=== PATIENT | female | born 1985 | race Hispanic/Latino ===

== ENCOUNTER 2017-11-27 20:34 | Day surgery (SDC) | payer MEDICAID, SELFPAY ==
[2017-11-27 20:58] VITALS: BP 117/63; TEMP 98.6; BMI 32.9
[2017-11-27 22:04] LABS: Bilirubin Negative (Negative); Blood, Urine Negative (Negative); Clarity CLEAR (Clear); Glucose, Urine (Dipstick) Negative (Negative); Leukocyte Negative (Negative); Nitrite Negative (Negative); Protein, Urine (Dipstick) Negative (Neg-Trace); Specific Gravity, Urine 1.014 (1.002-1.036); Urobilinogen 0.2 mg/dL (0.2-1.0)
[2017-11-27 22:05] LABS: Bacteria/HPF None Seen HPF (None Seen); Hyaline Casts/LPF 0-3 HYALINE CAST LPF (0-3 Hyaline); Pathc Cast-AUWi Flag 0.13 (0-2.49); RBC/HPF 0-3 HPF (0-3); Squamous Epithelial None Seen HPF (0-3); WBC/HPF None Seen HPF (0-3)
--- NOTE | 2017-11-28 00:09 | PRG ---
DATE OF ENCOUNTER: 11/27/2017 OB ER ENCOUNTER CHIEF COMPLAINT: Abdominal back pains. HISTORY OF PRESENT ILLNESS: Patient is a 32-year-old G5, P3 female with an intrauterine at approximately 12 weeks' gestation, who reports that she has been experiencing back pain and cramping and is worried that she may be miscarrying and was to come in for evaluation. Patient does have a p oor history with a 27-week delivery followed by a 34-week delivery and preceded by a term d elivery. She has also had a 19-week miscarriage. Patient denies any vaginal bleeding. She denies a ny change in her discharge. She feels rectal pressure and low back pain. Patient denies any recent illness or fever, fall, headache, chest pain, shortness of breath, significant nausea, vomiting, diar adelina, constipation, any new rashes, hip problems, or knee problems. She does report that she has bee n having more discharge than normal. PAST MEDICAL HISTORY: Noncontributory. PAST SURGICAL HISTORY: Negative. OBSTETRIC HISTORY: She has had 1 term in 2 deliveries, 1 second trimester loss. OB LABORATORY DATA: Unavailable. REVIEW OF SYSTEMS: Per HPI. PHYSICAL EXAMINATION: VITAL SIGNS: Blood pressure 117/63, heart rate of 79, respiratory rate of 18, temperature 98.6. GENERAL: She appears to be in no acute distress. She is alert, oriented, cooperative, and pleasant to interact with. HEENT: Normocephalic, atraumatic. LUNGS: Clear to auscultation bilaterally. HEART: Regular rate and rhythm. ABDOMEN: Soft and nontender. On her back, she has very point tenderness on the left paravertebral s acral region with palpable spasms. These are not present on the patient's right side. GENITOURINARY: Shows no erythema or discharge or swelling of the labia. Vagina is moist. She does have a distinct fishy odor with some minimal discharge. Cervix appears closed with no bleeding. heart Dopplers were in the 160s. LABORATORY STUDIES: Lab work showed negative UA for nitrites, leukocyte esterase, bacteria, and a CARPET CUTTER -3 negative for yeast, Monserrat, or Trichomonas. ASSESSMENT AND PLAN: Patient is a 32-year-old female with an intrauterine at 12 weeks with musculoskeletal pain and no evidence of infection. She has been shown various gentle stretches that the patient can use to help alleviate some spasms in her lower back. Patient has been given reassur ance and has been encouraged to establish care with her OB. Patient intents to see Dr. Brice Obrien.
== END 2017-11-27 23:00 | disposition home or self-care (01) ==
LOC: L&D/OP 20:34
PROVIDERS: ATTEND Family Medicine
DX: O99.89 Other specified diseases and conditions complicating pregnancy, childbirth and the puerperium (principal); R10.9 Unspecified abdominal pain; M54.9 Dorsalgia, unspecified; Z3A.12 12 weeks gestation of pregnancy; Z79.899 Other long term (current) drug therapy; Z87.59 Personal history of other complications of pregnancy, childbirth and the puerperium
CPT/HCPCS: 81001; 87480; 87510; 87660; 99284

== ENCOUNTER 2018-03-28 22:34 | Day surgery (SDC) | payer MEDICAID, OTHER ==
[2018-03-28 23:10] VITALS: BP 111/55; TEMP 98.9; BMI 38.0
[2018-03-29 00:39] LABS: Bilirubin Negative (Negative); Blood, Urine Negative (Negative); Clarity CLEAR (Clear); Glucose, Urine (Dipstick) Negative (Negative); Leukocyte Negative (Negative); Nitrite Negative (Negative); Protein, Urine (Dipstick) Negative (Neg-Trace); Specific Gravity, Urine 1.025 (1.002-1.036); pH, Urine 6.5 (5.0-9.0)
[2018-03-29 00:43] LABS: Bacteria/HPF None Seen HPF (None Seen); Hyaline Casts/LPF 0-3 HYALINE CAST LPF (0-3 Hyaline); Pathc Cast-AUWi Flag 0.29 (0-2.49); RBC/HPF 0-3 HPF (0-3); Squamous Epithelial 0-3 HPF (0-3); WBC/HPF None Seen HPF (0-3)
[2018-03-29 01:21] LABS: FFN Internal QC Analyzer PASS (PASS); FFN Internal QC Cassette PASS (PASS); Fetal Fibronectin Negative (Negative)
--- NOTE | 2018-03-29 07:56 | PRG ---
DATE OF SERVICE: 03/29/2018 PRIMARY OB: Dr. Brice Obrien CHIEF COMPLAINT: Pelvic pressure and abdominal pains. HISTORY OF PRESENT ILLNESS: The patient is a 33-year-old female with an intrauterine at 30 weeks gestation who is presenting with pelvic pressure and uterine contractions or tightening since about 5:00 yesterday. The patient reports she has a history of delivery x2 with delive ry at 27 weeks and 34 weeks. She reports that she has pain, some sharp pains getting out of bed and other movements. She says that she feels some tightening in her belly on random occasions about 2 ti mes per hour, lasting a minute or two and was concerned because she has felt this way prior to delive ring early. The patient is on progesterone supplementation for a history of labor. She sees Dr. Obrien and was last seen about a week ago. She denies any vaginal bleeding or leakage of fluid. She denies any urinary urgency or frequency. She denies any change in discharge. She denies fever, headache, chest pain, unexpected shortness of breath, nausea, vomiting, diarrhea, constipation, new rashes, hip or knee problems, vaginal bleeding, leaking fluid, change in discharge, urinary urgency o r frequency. PAST MEDICAL HISTORY: History of deliveries. SOCIAL HISTORY: Negative. OB LABS: Unavailable at time of dictation. REVIEW OF SYSTEMS: Per HPI. ALLERGIES: No known drug allergies. MEDICATIONS: vitamins and a vaginal progesterone supplementation. PHYSICAL EXAMINATION: VITAL SIGNS: Blood pressure 111/55, heart rate of 92, respiratory rate of 18, temperature 98.7. GENERAL: She appears to be in no acute distress. She is alert and oriented, cooperative and pleasan t to interact with. HEENT: Head is normocephalic, atraumatic. CHEST: Clear to auscultation bilaterally. HEART: Regular rate and rhythm. ABDOMEN: Soft and gravid. EXTREMITIES: Nontender, nonedematous. PELVIC: Vulva is without masses, lesions or erythema. Vagina is moist, with minimal discharge. Cer vix appears closed. A fibronectin and SOCIAL WORK ASSOCIATE-3 were collected as well as a cath UA. Cervical exam, cervix is closed, thick and high. heart tracing performed for abdominal pain in at 30 weeks gestation. Baseline is not ed to be in the 130s with moderate long-term variability, positive accelerations, no decelerations, p ossible infrequent contractions seen on the monitor. Fibronectin is negative. Urinalysis was negative for protein, glucose, had trace ketones, nega tive nitrites, negative leukocyte esterase, negative white blood cells, negative squamous cells, nega tive bacteria. SOCIAL WORK ASSOCIATE-3 is pending results. ASSESSMENT AND PLAN: The patient is a 33-year-old female with an intrauterine at 29 weeks and 6 days who presented to Labor and Delivery with new onset pressure and infrequent uterine contrac tions. With her history of delivery came for evaluation. The patient has no evidence of lab or at this time or urinary tract infection. She has a negative fibronectin. Fetus has a categ ory 1 tracing. The patient has been given reassurance at this time and has been given instructions t o call Labor and Delivery in the morning for SOCIAL WORK ASSOCIATE-3 results. In the meantime, the patient is to follow up with her primary OB as scheduled and continue her progesterone supplementation.
== END 2018-03-29 01:36 | disposition home or self-care (01) ==
LOC: L&D/OP 22:34
PROVIDERS: ATTEND Family Medicine
DX: O99.89 Other specified diseases and conditions complicating pregnancy, childbirth and the puerperium (principal); R10.2 Pelvic and perineal pain; Z3A.30 30 weeks gestation of pregnancy; Z87.51 Personal history of pre-term labor; Z79.899 Other long term (current) drug therapy
CPT/HCPCS: 51701; 81001; 82731; 87480; 87510; 87660; 99284

== ENCOUNTER 2018-05-08 00:57 | Day surgery (SDC) | payer OTHER ==
[2018-05-08 01:30] VITALS: BMI 39.1
--- NOTE | 2018-05-08 05:52 | SS ---
LABOR AND DELIVERY TRIAGE NOTE DATE OF EVALUATION: 05/08/2018 REGULAR PHYSICIAN: Brice Obrien M.D. EVALUATING PHYSICIAN: Rosalio Aggarwal M.D. CHIEF COMPLAINT: "I lost my mucus plug at home." HISTORY OF PRESENT ILLNESS: Ms. Rayo is a 33-year-old , G5, P1-2-1-3 with an estimated date of confinement of 06/07/2018, who presents with complaints of losing her mucus plug at home. She reports intermittent contractions over the last 24 hours, but denies ruptured membranes or vaginal bleeding. Her care has been with Dr. Obrien and has been without complications. PAST OBSTETRICAL HISTORY: Includes vaginal deliveries at 37 weeks, 27 weeks and 34 weeks as well as early miscarriage. PAST MEDICAL HISTORY: Unremarkable. CURRENT MEDICATIONS: vitamins and IM progesterone. PAST SURGICAL HISTORY: None. ALLERGIES: No known allergies. SOCIAL HISTORY: She denies tobacco or alcohol use. FAMILY HISTORY: Unremarkable. REVIEW OF SYSTEMS: She denies nausea, vomiting, fever, chills, ruptured membranes or vaginal bleeding. PHYSICAL EXAMINATION: VITAL SIGNS: Stable. She is afebrile. ABDOMEN: Soft, nontender and gravid. PELVIC: Pelvic examination shows the cervix to be 1 cm and long on initial exam. heart tones are stable. No significant regular contractions are seen. The patient is examined an hour later and shows no cervical change. ASSESSMENT: 1. 35-week intrauterine . 2. History of deliveries x2. 3. No evidence of labor at present. PLAN: The patient has been dismissed home with labor precautions. She voices understanding of her discharge instructions and is sent home in good condition. MELZIA
== END 2018-05-08 02:48 | disposition home or self-care (01) ==
LOC: L&D/OP 00:57
PROVIDERS: ATTEND Family Medicine
DX: O47.03 False labor before 37 completed weeks of gestation, third trimester (principal); Z3A.35 35 weeks gestation of pregnancy
CPT/HCPCS: 99283

== ENCOUNTER 2018-05-18 01:35 | Inpatient (IN) | payer OTHER ==
[2018-05-18] MEDS ORDERED: Lactated Ringer's 1,000 ML IV SCH (02:35)
[2018-05-18] MEDS ORDERED: Ondansetron HCl/PF 4 MG/2 ML Vial IVP PRN ×2 (02:35→06:48)
[2018-05-18] MEDS ORDERED: Promethazine HCl 25 MG/ML VIAL IM PRN ×2 (02:35→06:48)
[2018-05-18] MEDS ORDERED: Butorphanol Tartrate 1 MG/ML VIAL SLOW IVP PRN (02:35)
[2018-05-18 02:41] VITALS: BMI 39.9
[2018-05-18] MEDS ORDERED: NS / Oxytocin 40 units/1000ml 1,000 ML IV SCH ×2 (02:45→07:00)
[2018-05-18] MEDS ORDERED: Lidocaine 1% (PF) 30 ML VIAL SC PRN (02:45)
[2018-05-18] MEDS ORDERED: NS w/ Oxytocin 10 units 500 ML IV SCH ×2 (02:45)
[2018-05-18 02:58] LABS: Hemoglobin 14.4 g/dL (12.0-16.0); Mean Corpuscular HGB CONC 35.9 g/dL (32.0-36.0); Mean Corpuscular Hemoglobin 32.1 pg (27.0-31.0); Mean Corpuscular Volume 89.6 fL (78.0-98.0); Mean Platelet Volume 9.1 fL (7.4-10.4); Platelet Count 190 thou/uL (130-400); RBC Distribution Width 11.5 % (11.5-14.5); Red Blood Cell (RBC) Count 4.47 mill/uL (4.20-5.40)
[2018-05-18 03:31] LABS: HBSAg Index 0.24 S/CO (0-0.99); HIV (1/2) Antibody/Antigen Non-Reactive (NonReactive); HIV 1/2 INDEX 0.07 S/CO (<1.00); Hep B Surf Ag Non-Reactive S/CO (NonReactive)
[2018-05-18 04:22] LABS: Syphilis Antibody Nonreactive (Nonreactive); Syphilis Antibody Index 0.05 S/CO (<1.00 Non-Reactive)
[2018-05-18] MEDS ORDERED: Methylergonovine 0.2 MG/ML VIAL IM PRN (06:48)
[2018-05-18] MEDS ORDERED: Adacel (T-DAP) 0.5 ML VIAL IM ONE (06:48)
[2018-05-18] MEDS ORDERED: Preparation H Ointment 28 GM TUBE PR PRN (06:48)
[2018-05-18] MEDS ORDERED: HYDROcodone/Acetaminophen 5/325 mg Tablet PO PRN ×2 (06:48)
[2018-05-18] MEDS ORDERED: Varicella virus, LIVE 0.5 ML VIAL SC ONE (06:48)
[2018-05-18] MEDS ORDERED: Bisacodyl 10 MG SUPP PR PRN (06:48)
[2018-05-18] MEDS ORDERED: diphenhydrAMINE 25 MG CAP PO PRN (06:48)
[2018-05-18] MEDS ORDERED: Milk Of Magnesia 30 ML UDCUP PO PRN (06:48)
[2018-05-18] MEDS ORDERED: Lanolin Ointment 7 GM TUBE TOP PRN (06:48)
[2018-05-18] MEDS ORDERED: Measles/Mumps/Rubella 10 MCG/0.5 ML VIAL SC ONE (06:48)
[2018-05-18] MEDS ORDERED: Benzocaine/Menthol 20-0.5% 60 ML CAN TOP PRN (06:48)
[2018-05-18] MEDS ORDERED: Misoprostol 200 MCG TAB VAG PRN (06:48)
[2018-05-18] MEDS ORDERED: Zolpidem Tartrate 5 MG TAB PO PRN (06:48)
--- NOTE | 2018-05-18 06:50 | PDOC.OPDEL ---
OB Operative/Delivery Note Delivery Dr/Surgeon: Katiuska Pre-Delivery Diagnosis: active labor, ruptured membrane Procedure/Post Delivery Dx: spontaneous vaginal delivery Weeks gestation: 37 Anesthesia: none - Findings A Sex: female - 1 min: 8 - 5 min: 9 - Additional Findings/Plan Placenta delivered: spontaneous Repaired Obstetrical Laceration: none Estimated blood loss: 200 Post delivery plan: routine recovery
[2018-05-18] MEDS: Prenatal Vitamin 1 TAB PO SCH (10:37)
[2018-05-18] MEDS: Docusate Calcium (SURFAK) 240 MG CAP PO SCH ×2 (10:37→21:22)
[2018-05-18] MEDS: Ibuprofen 800 MG TAB PO SCH ×2 (10:37→18:21)
[2018-05-18] MEDS: Ferrous Sulfate 325 MG TAB PO SCH ×2 (10:38→16:22)
[2018-05-18] MEDS: Calcium Carbonate 500 MG ChewTAB PO PRN (17:04)
[2018-05-19] MEDS: Ibuprofen 800 MG TAB PO SCH ×5 (00:34→21:27)
[2018-05-19] MEDS: Ferrous Sulfate 325 MG TAB PO SCH ×2 (07:16→14:07)
[2018-05-19] MEDS: Docusate Calcium (SURFAK) 240 MG CAP PO SCH ×2 (08:05→21:27)
[2018-05-19] MEDS: Prenatal Vitamin 1 TAB PO SCH (08:05)
[2018-05-20] MEDS: Calcium Carbonate 500 MG ChewTAB PO PRN (03:32)
[2018-05-20] MEDS: Ibuprofen 800 MG TAB PO SCH ×2 (05:24→13:29)
[2018-05-20 07:39] VITALS: BP 99/57; TEMP 97.6
[2018-05-20] MEDS: Ferrous Sulfate 325 MG TAB PO SCH (08:57)
[2018-05-20] MEDS: Docusate Calcium (SURFAK) 240 MG CAP PO SCH (09:00)
[2018-05-20] MEDS: Prenatal Vitamin 1 TAB PO SCH (09:00)
== END 2018-05-20 14:10 | disposition home or self-care (01) | DRG 775 ==
LOC: L&D/OP 01:35 → L&D 02:28 → 3SW 10:08
PROVIDERS: ADMIT Family Medicine; ATTEND Family Medicine
PROC: 10E0XZZ Delivery of Products of Conception, External Approach (ICD-10-PCS; principal; 2018-05-18)
DX: O80 Encounter for full-term uncomplicated delivery (principal); Z3A.37 37 weeks gestation of pregnancy; Z37.0 Single live birth
CPT/HCPCS: 85027; 86780; 86850; 86900; 86901; 87340; 87389; 99285; J0595; J2001

== ENCOUNTER 2020-04-28 14:23 | Emergency (ER) | payer OTHER | END 2020-04-28 15:42 | disposition home or self-care (01) | LOC: ERS 14:23 | DX: U07.1 COVID-19 (principal); K21.9 Gastro-esophageal reflux disease without esophagitis; F32.9 Major depressive disorder, single episode, unspecified | CPT/HCPCS: 87635; 99283; U0003 ==

== ENCOUNTER 2020-04-30 15:04 | Emergency (ER) | payer OTHER ==
[2020-04-30] MEDS ORDERED: Benzonatate 100 MG CAP ONE (15:36)
--- NOTE | 2020-04-30 16:07 | RAD ---
EXAM: Single view of the chest HISTORY: Cough and shortness of breath COMPARISON: None FINDINGS: Single view of the chest shows a normal sized cardiomediastinal silhouette. There are perip heral opacities in the left lung The bones are unremarkable. IMPRESSION: Left pulmonary infiltrates
== END 2020-04-30 16:37 | disposition home or self-care (01) ==
LOC: ERS 15:04
DX: J18.9 Pneumonia, unspecified organism (principal); K21.9 Gastro-esophageal reflux disease without esophagitis; Z20.828 Contact with and (suspected) exposure to other viral communicable diseases
CPT/HCPCS: 71045

== ENCOUNTER 2021-03-01 21:44 | Emergency (ER) | payer SELFPAY ==
[2021-03-01] MEDS ORDERED: Dexamethasone 4 MG TAB ONE (23:18)
== END 2021-03-01 23:30 | disposition home or self-care (01) ==
LOC: ERS 21:44
DX: J30.2 Other seasonal allergic rhinitis (principal); K21.9 Gastro-esophageal reflux disease without esophagitis; Z86.19 Personal history of other infectious and parasitic diseases
CPT/HCPCS: 71045; J8540

== ENCOUNTER 2021-09-07 21:26 | Emergency (ER) | payer SELFPAY ==
[~2021-09-07 21:26] MED LIST: Iopamidol-370 76% 500 ML 1 ML ONE
[2021-09-07] MEDS ORDERED: diphenhydrAMINE 50 MG/ML VIAL ONE (22:29)
[2021-09-07] MEDS ORDERED: Metoclopramide HCl 10 MG/2 ML VIAL ONE (22:29)
[2021-09-07] MEDS ORDERED: Ketorolac Tromethamine 30 MG/ML VIAL ONE (22:29)
[2021-09-07 22:58] LABS: #Eosinphils 0.1 thou/uL (0.0-0.7); #Lymphocytes 1.7 thou/uL (1.20-3.40); #Monocytes 0.5 thou/uL (0.11-0.59); #Neutrophils 6.8 thou/uL (1.40-6.50); %Basophils 0.4 % (0.0-1.0); %Eosinophils 1.2 % (0.0-10.0); %Lymphocytes 18.4 % (21.0-51.0); %Monocytes 5.8 % (0.0-10.0); %Neutrophils 74.3 % (42.0-75.0); Hemoglobin 13.7 g/dL (12.0-16.0); Mean Corpuscular Hemoglobin 32.5 pg (27.0-31.0); Mean Corpuscular Volume 95.4 fL (78.0-98.0); Mean Platelet Volume 8.7 fL (7.4-10.4); Platelet Count 265 thou/uL (130-400); RBC Distribution Width 11.2 % (11.5-14.5); Red Blood Cell (RBC) Count 4.22 mill/uL (4.20-5.40); White Blood Cell (WBC) Count 9.2 thou/uL (4.8-10.8)
[2021-09-07 23:32] LABS: BHCG - Serum Negative (NEGATIVE); Pregs Control Background? CLEAR/WHITE (CLR/WHITE); Pregs Control Bar Appear? YES (CONTROL BAR)
[2021-09-07 23:33] LABS: Anion Gap 15 mmol/L (10-20); BUN (Urea Nitrogen) 11 mg/dL (7.0-18.7); Calc. Creatinine Clearance 0 mL/min (70-130); Calcium 9.3 mg/dL (7.8-10.44); Carbon Dioxide 21 mmol/L (22-29); Chloride 108 mmol/L (98-107); Glucose 117 mg/dL (70-105); Potassium 4.1 mmol/L (3.5-5.1); Sodium 140 mmol/L (136-145)
== END 2021-09-08 01:31 | disposition home or self-care (01) ==
LOC: ERS 21:26
DX: R51.9 Headache, unspecified (principal); K08.89 Other specified disorders of teeth and supporting structures; K21.9 Gastro-esophageal reflux disease without esophagitis
CPT/HCPCS: 36415; 70487; 80048; 84703; 85025; 86140; 96374; 96375; J1200; J1885; J2765; Q9967